=== PATIENT | female | born 2000 | race Caucasian/White ===

== ENCOUNTER 2021-07-27 21:00 | Emergency (ER) | payer OTHER ==
[~2021-07-27] VITALS: Ht 144.8 cm; Wt 59.0 kg
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
[2021-07-27] MEDS ORDERED: LIDOCAINE HCL/MPF 1% 30 ML VIAL IJ ONE (21:51)
[2021-07-27] MEDS ORDERED: TDAP [DIPH/PERTUSSIS/TET] 0.5 ML VIAL IM ONE ×2 (21:58→22:00)
[2021-07-27] MEDS ORDERED: LIDOCAINE HCL/PF 1% 30 ML VIAL TP ONE (22:00)
--- NOTE | 2021-07-27 22:05 | NUR ---
PA AT BEDSIDE
--- NOTE | 2021-07-27 22:38 | NUR ---
WOUND CARE AND SPLINT APPLIED
--- NOTE | 2021-07-27 23:07 | NUR ---
Patient discharged to home in stable condition. Written and verbal after care instructions given. Patient verbalizes understanding of instruction. PT ambulatory with a steady gait
[2021-07-27 23:08] VITALS: BP 130/68
== END 2021-07-27 23:07 | disposition home or self-care (01) ==
LOC: ER 21:06
DX: S61.012A Laceration without foreign body of left thumb without damage to nail, initial encounter (principal); Z60.2 Problems related to living alone; W26.0XXA Contact with knife, initial encounter; Y93.89 Activity, other specified; Y92.89 Other specified places as the place of occurrence of the external cause; Y99.0 Civilian activity done for income or pay
CPT/HCPCS: 12001; 84703; 90471; 90715; 99283; J3490 ×2